=== PATIENT | female | born 1970 | race Two or more races ===

== ENCOUNTER 2016-06-13 13:46 | Emergency (ER) | payer OTHER ==
[~2016-06-13] VITALS: Ht 177.8 cm; Wt 75.3 kg
[2016-06-13 13:51] VITALS: BP 156/98; PULSE 91; RESP 16; TEMP 98.2; O2SAT 99
--- NOTE | 2016-06-13 13:58 | PD ---
HPI . right shoulder pain for > 10 days Chief Complaint: Pain: Acute or Chronic Time Seen by Provider: 13:58 Travel History International Travel<30 days: No Contact w/Intl Traveler<30days: No Traveled to known affect area: No History of Present Illness HPI 45-year-old female with history of hyperthyroidism here with complaints of right shoulder pain that is going on for over 10 days. Patient tells me she has had chronic issues particularly tennis elbow in this right arm for years. 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 Today she is complaining of right elbow and shoulder pain. She says it's also somewhat in her neck. She did help a friend clean and thinks this may have aggravated it. She is in middle of a new primary care provider and was told to come to the emergency department to make sure she was not having a stroke. The neuro issues. She has no other complaints. PFSH Past Medical History Hx Anticoagulant Therapy: No Diabetes: No Thyroid Disease: Yes ?: Not Social History Tobacco Use: Yes Allergies-Medications (Allergen,Severity, Reaction): Coded Allergies: No Known Allergies (Unverified , 06/13/16) Review of Systems General / Constitutional: No: Fever Eyes: No: Visual changes HENT: No: Headaches Cardiovascular: No: Chest Pain or Discomfort Respiratory: No: Shortness of Breath Gastrointestinal: No: Abdominal Pain Genitourinary: No: Dysuria Musculoskeletal: Positive: Pain (right shoulder and elbow pain) Skin: No Rash Neurologic: No: Weakness Psychiatric: No: Depression Endocrine: No: Polydipsia Hematologic/Lymphatic: No: Easy Bruising Physical Exam Narrative GENERAL: AAO x 3, no acute distress, Well-nourished, well-developed patient. SKIN: Warm and dry. No visible rashes or bruising. HEAD: Normocephalic and atraumatic. EYES: No scleral icterus. No injection or drainage. ENT: No nasal drainage noted. Mucous membranes pink. Airway patent. NECK: Supple, trachea midline. No JVD. CARDIOVASCULAR: Regular rate and rhythm without murmurs, gallops, or rubs. RESPIRATORY: Breath sounds equal bilaterally. No accessory muscle use. No rhonchi or rales. GASTROINTESTINAL: Abdomen soft, non-tender, nondistended. EXTREMITIES: No cyanosis or edema. minimally decreased ROM of the right shoulder / elbow is normal. no acute dislocation or evidence of fracture NEURO: CN 2-12 intact, industrial seamstress strength normal b/l, UE and LE strength is normal. speech is normal BACK: Nontender without obvious deformity. No CVA tenderness. PSYCH: AAO x 3, normal affect. Data Data Last Documented VS Vital Signs Date Time Temp Pulse Resp B/P Pulse Ox O2 Delivery O2 Flow Rate FiO2 06/13/16 13:51 98.2 91 16 156/98 99 MDM Medical Decision Making Medical Screen Exam Complete: Yes Emergency Medical Condition: Yes Medical Record Reviewed: Yes (none on file) Differential Diagnosis rotator cuff injury, tennis elbow, OA, RA Narrative Course 45-year-old female with history of hyperthyroidism here with complaints of right shoulder pain that is going on for over 10 days. Patient tells me she has had chronic issues particularly tennis elbow in this right arm for years. 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 Today she is complaining of right elbow and shoulder pain. She says it's also somewhat in her neck. She did help a friend clean and thinks this may have aggravated it. She is in middle of a new primary care provider and was told to come to the emergency department to make sure she was not having a stroke. The neuro issues. She has no other complaints. Patient seen and examined. She has minimally decreased range of motion on her right shoulder. There are no other acute findings on examination. I do not recommend any type of imaging such as x-ray, as I suspect rotator cuff. I explained to her that her primary care may need to consider MRI future. I will treat her with a short course of NSAIDs. Discussed that she will need to follow-up with primary care provider for further care and treatment. Patient verbalized understanding of instructions, questions were answered, and thanked me for their care. I advised them if their condition worsens, please return to the nearest emergency room for further care. Diagnosis Primary Impression: Right shoulder pain Qualified Code: M25.511 - Chronic right shoulder pain Additional Impression: Right shoulder strain Qualified Code: S46.911A - Right shoulder strain, initial encounter Patient Instructions: General Instructions, Shoulder Pain (ED) Additional Instructions: Please return to emergency department if your symptoms return or worsen. Follow up with your primary care provider. Take medications as prescribed. Med/Other Pt SpecificInfo: Prescription(s) given Scripts Ibuprofen 800 Mg [id number] Mg PO TID #21 TAB Prov:Travon Mejia MD 06/13/16 Disposition: 01 DISCHARGE HOME Condition: Stable Jie Lazcano Jun 13, 2016 13:58
[2016-06-13] MEDS ORDERED: IBUP800T23 PO (14:07)
== END 2016-06-13 14:40 | disposition home or self-care (01) ==
LOC: PHEFT 13:46
DX: S46.911A Strain of unspecified muscle, fascia and tendon at shoulder and upper arm level, right arm, initial encounter (principal); G89.29 Other chronic pain; M25.521 Pain in right elbow; M25.511 Pain in right shoulder; E05.90 Thyrotoxicosis, unspecified without thyrotoxic crisis or storm; M77.11 Lateral epicondylitis, right elbow; Z72.0 Tobacco use; X58.XXXA Exposure to other specified factors, initial encounter; Y93.E9 Activity, other interior property and clothing maintenance; Y92.009 Unspecified place in unspecified non-institutional (private) residence as the place of occurrence of the external cause; Y99.8 Other external cause status
CPT/HCPCS: 99283